=== PATIENT | female | born 1940 | race Caucasian/White ===

== ENCOUNTER 2018-01-31 07:57 | Emergency (ER) | payer OTHER, MEDICARE ==
[~2018-01-31] VITALS: Ht 162.6 cm; Wt 57.2 kg
--- NOTE | 2018-01-31 08:42 | ED GI/GU/ABDOMINAL COMPLAINT ---
History of Present Illness General Chief Complaint: Nausea, Vomiting, Diarrhea Stated Complaint: DIARRHEA X 5 DAYS Source: patient, family, old records Exam Limitations: no limitations Vital Signs & Intake/Output Vital Signs & Intake/Output Vital Signs Date Time Temp Pulse Resp B/P B/P Pulse O2 O2 Flow FiO2 Mean Ox Delivery Rate 01/31 0804 97.9 80 18 151/72 98 Room Air Allergies Coded Allergies: NO KNOWN ALLERGIES (01/10/14) Triage Note: 78F GENERALLY WELL APPEARING WITH REPORT OF 6-7 DAYS OF DIARRHEA AND ARRIVES WITH STOOL SAMPLE. BELIEVES SHE HAD HARPER LETTUCE AT A DINER LAST WEEKEND (FRIDAY NIGHT). DENIES VOMITING. +UMBILICAL AREA ABD PAIN 6/10 AND INTERMITTENT. DENIES BLACK/BLOOD TO STOOLS. HX PANCREATITIS 15 YEARS AGO. DENIES RECENT ANTIBIOTIC USE. DENIES CP/SOB/PALP/V/FEVERS/CHILLS/DIZZINESS Triage Nurses Notes Reviewed? yes LMP (ages 10-50): post menopausal ? n Is pt currently ? No Onset: Last week Duration: day(s):, continues in ED Timing: recent history Quality/Severity: aching, moderate Location: epigastric Radiation: no radiation Activities at Onset: eating, rest (? harper lettuce) Prior Abdominal Problems: none Past Sexual History: Unobtainable at this time Modifying Factors: Worsens With: eating. Associated Symptoms: abdominal pain, diarrhea HPI: 1 week prior to admission patient had salad with Keven lettuce at the [employer]. 6 days prior to admission patient developed frequent loose watery stools that have persisted with anorexia abdominal cramping improved after defecation. She denies fever chills nausea vomiting chest pain cough shortness breath headache dysuria rash bleeding. Past History Travel History Traveled to [place] past 21 day No Medical History Any Pertinent Medical History? see below for history Neurological: NONE EENT: NONE Cardiovascular: NONE Respiratory: NONE Gastrointestinal: PANCREATITIS Hepatic: NONE Renal: NONE Musculoskeletal: NONE Psychiatric: NONE Endocrine: NONE Surgical History Surgical History: non-contributory Psychosocial History Who do you live with Spouse What is your primary language Palauan Tobacco Use: Never used ETOH Use: occasional use Illicit Drug Use: denies illicit drug use Family History Hx Contributory? No Review of Systems Review of Systems Constitutional: Reports: no symptoms. EENTM: Reports: no symptoms. Respiratory: Reports: no symptoms. Cardiovascular: Reports: no symptoms. GI: Reports: see HPI, abdominal pain, diarrhea. Genitourinary: Reports: no symptoms. Musculoskeletal: Reports: no symptoms. Skin: Reports: no symptoms. Neurological/Psychological: Reports: no symptoms. Hematologic/Endocrine: Reports: no symptoms. Immunologic/Allergic: Reports: no symptoms. All Other Systems: Reviewed and Negative Physical Exam Physical Exam General Appearance: well developed/nourished, alert, awake, anxious, mild distress Head: atraumatic, normal appearance Eyes: Bilateral: normal appearance, PERRL, EOMI, normal inspection. Ears, Nose, Throat, Mouth: hearing grossly normal, moist mucous membrane Neck: normal inspection, supple, full range of motion, normal alignment, no midline tenderness Respiratory: normal breath sounds, chest non-tender, no respiratory distress, quiet respiration, lungs clear Cardiovascular: regular rate/rhythm, normal peripheral pulses, norml femoral pulses equa Peripheral Pulses: 4+ carotid (R), 4+ carotid (L) Gastrointestinal: normal bowel sounds, soft, non-tender, no organomegaly Back: normal inspection, normal range of motion, no vertebral tenderness Extremities: normal range of motion, no ligament instability Neurologic/Psych: no motor/sensory deficits, awake, alert, oriented x 3, normal gait, normal mood/affect, paradi tender II-XII nml as tested Skin: intact, normal color, warm/dry Core Measures ACS in differential dx? No Sepsis Present: No Sepsis Focused Exam Completed? No Progress Differential Diagnosis: appendicitis, biliary colic, bowel obstruction, colon cancer, cholecystitis Plan of Care: Orders Procedure Date/time Status STOOL: R/O YERSINIA 02/01 820 Active STOOL:R/O VIBRIO 01/31 08 Active C.DIFFICILE 01/31 08 Active CULTURE,STOOL 01/31 08 Active OVA AND PARASITE ANTIGENS 01/31 08 Active LIPASE 01/31 08 Complete COMPREHENSIVE METABOLIC PANEL 01/31 08 Complete CBC WITHOUT DIFFERENTIAL 02/01 808 Complete EKG 01/31 0759 Active Laboratory Tests 01/31/18 0820: Anion Gap 12, Estimated GFR > 60, BUN/Creatinine Ratio 21.4, Glucose 88, Calcium 9.3, Total Bilirubin 0.7, AST 19, ALT 12, Alkaline Phosphatase 36, Total Protein 6.9, Albumin 4.3, Globulin 2.6, Albumin/Globulin Ratio 1.7, Lipase 63, CBC w Diff NO MAN DIFF REQ, RBC 3.71 L, MCV 89.4, MCH 30.0, MCHC 33.5, RDW 12.9, MPV 8.3, Gran % 43.2, Lymphocytes % 45.8, Monocytes % 8.7, Eosinophils % 1.6, Basophils % 0.7, Absolute Granulocytes 2.6, Absolute Lymphocytes 2.8, Absolute Monocytes 0.5, Absolute Eosinophils 0.1, Absolute Basophils 0 Microbiology 02/01 836 STOOL: Cryptosporidium Antigen - RECD 02/01 836 STOOL: Giardia Antigen (TWAN) - RECD 02/01 828 STOOL: Clostridium difficile Toxin A & B - CAN Cancelled: MERGED 02/01 828 STOOL: Vibrio Culture - CAN Cancelled: MERGED 02/01 828 STOOL: Yersinia Culture - CAN Cancelled: MERGED 02/01 820 STOOL: Clostridium difficile Toxin A & B - RECD 02/01 820 STOOL: Vibrio Culture - RECD 02/01 820 STOOL: Yersinia Culture - RECD 02/01 820 STOOL: Stool Culture - RECD Initial ED EKG: none Departure Departure Time of Disposition: 1016 Disposition: HOME OR SELF CARE Condition: Stable Clinical Impression Primary Impression: Diarrhea Referrals: Avery STEPHENS,Stalin Leal (PCP/Family) Departure Forms: Customer Survey General Discharge Information Prescriptions: Current Visit Scripts Ciprofloxacin HCl (Cipro) 1 TAB PO BID #14 TAB Loperamide HCl (Imodium A-D) 0 PO SEE ADMIN CRITERIA PRN diarrhea #24 TAB 1 tab after each loose stool up to 7 per day Hyoscyamine Sulfate (Levsin-Sl) 1-2 TAB SL Q4P PRN abdominal cramps #30 TAB
[2018-01-31 08:55] LABS: ABSOLUTE BASOPHIL COUNT 0 /CUMM (0.0-0.2); ABSOLUTE EOSINOPHIL COUNT 0.1 /CUMM (0.0-0.7); ABSOLUTE GRANULOCYTE CT 2.6 /CUMM (1.4-6.5); ABSOLUTE LYMPH COUNT 2.8 /CUMM (1.2-3.4); ABSOLUTE MONOCYTE COUNT 0.5 /CUMM (0.10-0.60); BASOPHIL % 0.7 % (0.0-2.0); EOSINOPHIL % 1.6 % (0-5); GRANULOCYTE % 43.2 % (42.2-75.2); HEMATOCRIT 33.2 % (37-47); MEAN CORPUSCULAR HGB CONC 33.5 G/DL (33.0-37.0); MEAN CORPUSCULAR VOLUME 89.4 FL (81.0-99.0); MEAN PLATELET VOLUME 8.3 FL (7.4-10.4); PLATELET COUNT 317 /CUMM (130-400); RBC DISTRIBUTION WIDTH 12.9 % (11.5-14.5); RED BLOOD CELL CT 3.71 /CUMM (4.20-5.40); WHITE BLOOD CELL COUNT 6.1 /CUMM (4.8-10.8)
[2018-01-31] MEDS ORDERED: LEVSIN-SL0.125 MG SL (10:18)
[2018-01-31] MEDS ORDERED: CIPRO500 M1 PO (10:18)
[2018-01-31] MEDS ORDERED: IMODIUM A-D2 M1 PO (10:18)
[2018-01-31 10:31] VITALS: BP 136/88
== END 2018-01-31 10:32 ==
LOC: ERH 07:57
PROVIDERS: Emergency Medicine
DX: R19.7 Diarrhea, unspecified (principal)
CPT/HCPCS: 87045; 87328; 87329; 93005; 93010; 96361; 96374